=== PATIENT | male | born 1935 | race Caucasian/White ===

== ENCOUNTER 2016-07-12 11:18 | Inpatient (IN) | payer MEDICARE, OTHER ==
[~2016-07-12 11:18] MED LIST: ALBUTEROL; ALBUTEROL17 GM; ALBUTEROL2.5 MG/3 M IH; ALDACTONE25 M1 PO; ASPIRIN EC325 M1 PO; CHLORASEPTIC SO2 LOZ MM; CIPRO500 MG/5 M; CLARITIN10 M6 PO; CLARITIN10 MG; COREG12.5 M1 PO; COUMADIN2.5 M1 PO; COUMADIN2.5 MG; COUMADIN5 M2 PO; COUMADIN5 MG; CPAP; FLOMAX0.4 MG; FOLIC ACID1 M1 PO; HYDROCHLOROTH12.5 M3 PO; HYDROCHLOROTHIA25 M1 PO; IPRAT-ALBUT 0.5-3 ML IH; LANOXIN125 MC3 PO; LASIX20 M1 PO; LIPITOR20 M1 PO; LISINOPRIL40 M1 PO; LOPRESSOR50 MG; MAG-AL PLUS XS30 M1 PO; MECLIZINE HCL25 M3 PO; MEDROL4 M2 PO; METHOTREXA25 MG/1 M6 SC; MUCINEX600 M1 PO; MYTAB GAS80 M1 PO; PACERONE200 MG; PREDNISONE1 M1 PO; PRINIVIL20 MG; PROTONIX40 M2 PO; PROTONIX40 MG; PROVENTIL HFA6.7 G1 INH; SENSI-CARE PRO113 GM; SPIRONOLACTONE25 M2 PO; TRAMADOL HCL50 M2 PO; TRAMADOL HCL50 MG; TRAZODONE HCL50 M1 PO; TYLENOL325 M2 PO; WARFARIN SODIUM5 M2 PO; ZESTRIL10 MG; ZESTRIL5 M1 PO; ZOCOR40 M1 PO; ZOCOR80 MG; ZOFRAN ODT4 MG PO
[2016-07-12] MEDS ORDERED: XARELTO20 M1 PO (11:40)
[2016-07-12] MEDS ORDERED: MACROBID 100 M100 M1 PO (11:40)
[2016-07-12] MEDS ORDERED: CYMBALTA60 M1 PO (11:41)
[2016-07-12] MEDS ORDERED: FLOMAX0.4 M1 PO (11:44)
[2016-07-12] MEDS ORDERED: PROSCAR5 M1 PO (11:44)
[2016-07-12] MEDS ORDERED: SIMETHICONE80 M3 PO (11:53)
[2016-07-12] MEDS ORDERED: SYMBICORT 160-1 PUFF INH (11:53)
[2016-07-12] MEDS ORDERED: TRAZODONE HCL50 M1 PO (11:54)
[2016-07-12] MEDS ORDERED: [UNRECOGNIZED DRUG - OTHER] TP (11:55)
[2016-07-12 11:57] LABS: BASO % 0.7 % (0-2); EOS % 1.7 % (0-7); EOSINOPHIL ABSOLUTE COUNT 0.1 tho/cmm (0.0-0.7); HCT-HEMATOCRIT 27.4 % (36.0-53.5); HGB-HEMOGLOBIN 8.7 gm/dl (13.5-17.0); IMMATURE GRANULOCYTES ABSOLUTE 0.02 tho/cmm (0-0.03); IMMATURE GRANULOCYTES PERCENT 0.3 % (0-0.3); LYMPH ABSOLUTE COUNT 1.2 tho/cmm (0.8-4.5); MCH (MEAN CORPUSCULAR HGB) 34.1 pg (28.0-32.0); MCHC MEAN CORPUSCULAR HGB CONC 31.8 % (32.0-36.0); MCV (MEAN CELL VOLUME) 107.5 fl (82.0-96.0); MEAN PLATELET VOLUME 9.4 cmc (9.4-12.4); MONO % 10.5 % (0-12); MONOCYTE ABSOLUTE COUNT 0.6 tho/cmm (0.0-1.2); NEUTROPHILS % 66.8 % (40-80); PLATELET COUNT 336 tho/cmm (150-450); RED BLOOD COUNT 2.55 mil/cmm (4.40-5.70); RED CELL DISTRIBUTION WIDTH 14.8 % (12.4-16.4)
[2016-07-12 13:36] LABS: ANION GAP 13 mmol/L (0-20); BLOOD UREA NITROGEN 21 mg/dl (6-24); CALCIUM 8.3 mg/dl (8.5-10.5); CARBON DIOXIDE-VENOUS 28 mmol/L (22-32); CHLORIDE 107 mmol/l (96-110); CREATININE 1.18 mg/dl (0.60-1.30); GLUCOSE 97 mg/dL (70-110); POTASSIUM 4.3 mmol/L (3.7-5.1); SODIUM 144 mmol/L (135-145); eGFR VALUE FOR BLACK 68 mL/Min
[2016-07-13 04:42] LABS: BASO % 0.4 % (0-2); EOS % 1.8 % (0-7); EOSINOPHIL ABSOLUTE COUNT 0.1 tho/cmm (0.0-0.7); HCT-HEMATOCRIT 24.3 % (36.0-53.5); HGB-HEMOGLOBIN 7.7 gm/dl (13.5-17.0); IMMATURE GRANULOCYTES ABSOLUTE 0.01 tho/cmm (0-0.03); IMMATURE GRANULOCYTES PERCENT 0.2 % (0-0.3); LYMPH % 22.6 % (20-45); LYMPH ABSOLUTE COUNT 1.1 tho/cmm (0.8-4.5); MCH (MEAN CORPUSCULAR HGB) 33.9 pg (28.0-32.0); MCHC MEAN CORPUSCULAR HGB CONC 31.7 % (32.0-36.0); MEAN PLATELET VOLUME 9.4 cmc (9.4-12.4); MONO % 13.2 % (0-12); MONOCYTE ABSOLUTE COUNT 0.7 tho/cmm (0.0-1.2); NEUTROPHIL ABSOLUTE COUNT 3.1 tho/cmm (1.6-8.0); NEUTROPHIL-AUTOMATED 3.1 tho/cmm (1.6-8.0); NEUTROPHILS % 61.8 % (40-80); PLATELET COUNT 284 tho/cmm (150-450); RED BLOOD COUNT 2.27 mil/cmm (4.40-5.70); RED CELL DISTRIBUTION WIDTH 15.1 % (12.4-16.4)
[2016-07-13 04:54] LABS: ANION GAP 10 mmol/L (0-20); BLOOD UREA NITROGEN 16 mg/dl (6-24); CALCIUM 7.8 mg/dl (8.5-10.5); CARBON DIOXIDE-VENOUS 29 mmol/L (22-32); CHLORIDE 108 mmol/l (96-110); CREATININE 0.96 mg/dl (0.60-1.30); GLUCOSE 85 mg/dL (70-110); POTASSIUM 4.2 mmol/L (3.7-5.1); SODIUM 143 mmol/L (135-145); eGFR VALUE FOR BLACK 87 mL/Min
[2016-07-14 03:46] LABS: HGB-HEMOGLOBIN 9.7 gm/dl (13.5-17.0)
[2016-07-15 05:23] LABS: ANION GAP 10 mmol/L (0-20); BLOOD UREA NITROGEN 13 mg/dl (6-24); CARBON DIOXIDE-VENOUS 29 mmol/L (22-32); CHLORIDE 109 mmol/l (96-110); CREATININE 0.99 mg/dl (0.60-1.30); GLUCOSE 95 mg/dL (70-110); POTASSIUM 4.2 mmol/L (3.7-5.1); SODIUM 144 mmol/L (135-145); eGFR VALUE FOR BLACK 84 mL/Min
[2016-07-16] MEDS ORDERED: COUMADIN5 M2 PO (16:23)
[2016-10-24] MEDS ORDERED: COUMADIN5 M2 PO (13:16)
[2016-10-24] MEDS ORDERED: PLAVIX75 M1 PO (13:16)
[2016-10-24] MEDS ORDERED: ASPIRIN EC81 MG PO (13:38)
[2016-12-23] MEDS ORDERED: NORTREL 1-35 21 EACH PO (15:48)
[2016-12-23] MEDS ORDERED: STOOL SOFTENER100 M2 PO (15:48)
[2016-12-23] MEDS ORDERED: MUCINEX600 M1 PO (15:49)
[2016-12-23] MEDS ORDERED: C-PAP MACHINE (16:09)
[2017-01-07] MEDS ORDERED: NORTREL 1-35 T1 EACH PO (12:27)
== END 2016-07-16 17:05 | DRG 379 ==
LOC: EDMED 11:18 → EMR2 15:30 → 5WE 17:10
PROVIDERS: Emergency Medicine; Internal Medicine; Internal Medicine Gastroenterology; Registered Nurse; ADMIT Internal Medicine
PROC: 0DJ08ZZ Inspection of Upper Intestinal Tract, Via Natural or Artificial Opening Endoscopic (ICD-10-PCS; principal; 2016-07-12)
DX: K92.2 Gastrointestinal hemorrhage, unspecified (principal); D64.9 Anemia, unspecified; I10 Essential (primary) hypertension; E78.5 Hyperlipidemia, unspecified
CPT/HCPCS: C9113; G0500; J2250; J3010; J7030; J9260; P9016; Q9967